=== PATIENT | female | born 1965 | race Caucasian/White ===

== ENCOUNTER → 2019-04-12 | Outpatient (CLI) | payer OTHER | END | disposition home or self-care (01) | LOC: PMG 17:14 | PROVIDERS: ATTEND Registered Nurse | DX: R07.89 Other chest pain (principal); R20.0 Anesthesia of skin | CPT/HCPCS: 36415; 82550; 82607; 84484; 85379 ==

== ENCOUNTER → 2019-04-16 | Outpatient (CLI) | payer OTHER ==
[~2019-04-16] MED LIST: IOHEXOL 350 MG/ML 100 ML VIAL. IV ONE
--- NOTE | 2019-04-16 13:04 | RAD ---
EXAM: CT angiography of the chest with intravenous contrast. HISTORY: Pain. Elevated d-dimer. TECHNIQUE: Computed tomographic images of the chest were obtained following the administration of 75 cc Omnipaque 350 intravenous contrast according to angiography protocol. Multiplanar reformatting was performed and three dimensional maximum intensity projection images were obtained. *One or more of the following individualized dose reduction techniques were utilized for this examination: 1. Automated exposure control. 2. Adjustment of the mA and/or kV according to patient size. 3. Use of iterative reconstruction technique. COMPARISON: None. FINDINGS: There is no evidence of pulmonary embolism. The heart is normal in size. The aorta is normal in caliber. No suspicious lymph node is seen. There is mild eventration of the left hemidiaphragm. There is bilateral posterior dependent and basilar atelectasis. There is a 9 mm nodule with surrounding groundglass within the anterior left upper lobe. There are few peripheral groundglass opacities within the left upper lobe. There is also a 1.6 cm nodular opacity with surrounding groundglass within the lingula abutting the pleural fissure. There is a 3 mm nodule within the lingula. There is a 7 mm pleural-based nodule with surrounding groundglass abutting the pleura of the medial left upper lobe. There is a calcified granuloma within the left lower lobe. There 1.3 cm and 1.4 cm hypodense lesions within the left and posterior right hepatic lobes. The gallbladder and visualized portions of the pancreas are unremarkable. The spleen contains a few granulomas. The adrenal glands and visualized portions of the kidneys are unremarkable. There is no suspicious osseous lesion. There is a mild chronic compression fracture superior endplate Schmorl's node at T11. There are few incidental osseous hemangiomas. IMPRESSION: 1. No evidence of pulmonary emphysema. 2. Left upper lobe and lingular nodules with surrounding groundglass, the largest of which measures 1.6 cm. These may be infectious or inflammatory in etiology, given the presence of additional nonspecific groundglass opacities within the peripheral aspect of the left upper lobe. The possibly of neoplasm is not excluded. Short-term follow-up following treatment of a potential infectious etiology is recommended. If these lesions persist however, short-term follow-up, the largest lesion is within normal limits for assessment with PET/CT. 3. Small hypodense lesions within the liver, possibly representing cysts or hemangiomas. Liver sonography may be useful to confirm benignity. Electronically signed by: Lynn Osborne MD (04/16/2019 1:01 PM) [facility]
== END | disposition home or self-care (01) ==
LOC: CT 12:16
PROVIDERS: ATTEND Registered Nurse
DX: J98.11 Atelectasis (principal); J84.10 Pulmonary fibrosis, unspecified; R91.8 Other nonspecific abnormal finding of lung field; K76.0 Fatty (change of) liver, not elsewhere classified; K76.89 Other specified diseases of liver; M51.44 Schmorl's nodes, thoracic region
CPT/HCPCS: 71275; Q9967

== ENCOUNTER → 2019-04-26 | Outpatient (CLI) | payer OTHER ==
[~2019-04-26] MED LIST changes: +IOHEXOL 300 MG/ML 75 ML VIAL. IV ONE; -IOHEXOL 350 MG/ML 100 ML VIAL. IV ONE
--- NOTE | 2019-04-26 13:07 | RAD ---
EXAM: CT Chest with IV contrast INDICATION: Syncope. TECHNIQUE: Multi-detector row CT images were acquired from the thoracic inlet through the upper abdomen with the use of IV contrast. Sagittal and coronal images were acquired from the transaxial data. All CT scans performed at this facility utilize dose optimization techniques as appropriate to the exam, including the following: Automated exposure control and adjustment of the mA and/or KV according to patient size (this includes techniques or standardized protocols for targeted exams where dose is indication/reason for exam). IV CONTRAST: Administered DLP 249 mGycm COMPARISON: None FINDINGS: CARDIOVASCULAR: Unremarkable. No evidence of aortic aneurysm, dissection or flow limiting stenosis. The pulmonary arteries are not optimally opacified for detailed assessment for pulmonary emboli but no filling defects suspicious for large central pulmonary embolus are evident. MEDIASTINUM & KARLA: Calcified left hilar lymph nodes. No adenopathy or mass. LUNGS: Groundglass opacities are present in the left upper lobe measuring 5 mm (image 29 of 86 on series 4) and 1.2 cm (image 63 on image 4) PLEURAL SPACE: No pleural effusions or pneumothorax. OSSEOUS & SOFT TISSUE: Unremarkable ABDOMEN: There of low-density ovoid lesions in hepatic segments 2 measuring 9 and 6 mm as well as an additional lesion in hepatic segment 7 measuring 1.3 cm are all compatible with hepatic cysts. IMPRESSION: Evidence of previous granulomatous disease with a few scattered groundglass opacities in the left upper lobe that could represent acute pneumonitis. Consider follow-up. No evidence of an acute aortic syndrome or of large, central pulmonary emboli. Electronically signed by: Cody Palumbo MD (04/26/2019 1:03 PM) [facility]
== END | disposition home or self-care (01) ==
LOC: CT 07:43
PROVIDERS: ATTEND Registered Nurse
DX: D71 Functional disorders of polymorphonuclear neutrophils (principal); I89.8 Other specified noninfective disorders of lymphatic vessels and lymph nodes; K76.9 Liver disease, unspecified; R91.8 Other nonspecific abnormal finding of lung field
CPT/HCPCS: 71260; Q9967

== ENCOUNTER → 2019-06-13 | Outpatient (CLI) | payer OTHER ==
--- NOTE | 2019-06-13 11:52 | RAD ---
4 views of the cervical spine 06/13/2019 INDICATION: Numbness and tingling, left arm COMPARISON STUDY: None FINDINGS: No evidence of acute fracture or alignment abnormality is identified. Vertebral body heights are maintained. The lateral axial articulation remains intact. No prevertebral soft tissue edema is identified. Facet joints remain aligned. There is degenerative disc space narrowing at C C5-C6, and C6-C7. A posterior projecting disc osteophyte complexes seen at C5-C6. IMPRESSION: 1. No evidence of acute osseous abnormality 2. Degenerative changes of the cervical spine most prominent at C5-C7 including a posterior projecting disc osteophyte complex at C5-C6 . Given history of possible radicular symptoms, further evaluation with cervical spine MRI may be helpful. Electronically signed by: Jose Carlos Jsoeph MD (06/13/2019 11:49 AM) [id number]
== END | disposition home or self-care (01) ==
LOC: PMG 09:01
PROVIDERS: ATTEND Registered Nurse
DX: M47.812 Spondylosis without myelopathy or radiculopathy, cervical region (principal); M50.322 Other cervical disc degeneration at C5-C6 level; M48.02 Spinal stenosis, cervical region; M25.78 Osteophyte, vertebrae
CPT/HCPCS: 72040

== ENCOUNTER → 2019-10-03 | Outpatient (CLI) | payer OTHER ==
--- NOTE | 2019-10-03 12:15 | RAD ---
DATE: 10/03/2019 7:55 AM EXAM: DIGITAL SCREEN BILAT W/CAD HISTORY: Screening COMPARISON: None. This is a baseline. Bilateral full field craniocaudal and mediolateral oblique images were obtained using digital technique. This study was interpreted with the benefit of Computerized Aided Detection (CAD). FINDINGS: Breast Density: SCATTERED The breast parenchyma shows scattered fibroglandular densities. Breast parenchyma level B Negative right mammogram. Focal asymmetry left breast at the approximate 3:30 o'clock position 6 cm from the nipple needs additional imaging with spot compression views, full-field lateral view and targeted left breast ultrasound. IMPRESSION: Left breast focal asymmetry, findings for which additional imaging is advised. BI-RADS CATEGORY: 0 INCOMPLETE: NEEDS ADDITIONAL IMAGING EVALUATION AND/OR PRIOR MAMMOGRAMS FOR COMPARISON. RECOMMENDED FOLLOW-UP: ADD ADDITIONAL IMAGING The patient will be contacted to return for additional imaging and a supplemental report will follow. PQRS compliance statement: Patient information was entered into a reminder system with a target due date for the next mammogram. Mammography is a sensitive method for finding small breast cancers, but it does not detect them all and is not a substitute for careful clinical examination. A negative mammogram does not negate a clinically suspicious finding and should not result in delay in biopsying a clinically suspicious abnormality. "Our facility is accredited by the [employer] Mammography [employer]."
== END | disposition home or self-care (01) ==
LOC: MAMMO 07:47
PROVIDERS: ATTEND Physician Assistant
DX: Z12.31 Encounter for screening mammogram for malignant neoplasm of breast (principal)
CPT/HCPCS: 77067

== ENCOUNTER → 2020-01-15 | Outpatient (CLI) | payer OTHER ==
--- NOTE | 2020-01-15 18:28 | RAD ---
Examination: BREAST LEFT, DIGITAL DIAGNOSTIC LT History: Reason: ABNORMAL MAMMOGRAM CALLBACK / Spl. Instructions: / History: Comparison/Correlation: 10/03/2019 Findings: Spot compression imaging of the left central breast in the MLO projection, left outer breast, compression, and mediolateral view of the left breast were obtained. Persistence of the asymmetry is present. Scattered fibroglandular densities noted. Limited left breast ultrasound exam at the 3:30 region 6 cm from nipple was performed demonstrating an intramammary lymph node measuring up to 0.6 cm x 0.8 cm x 0.4 cm. This finding corresponds with mammographic finding. Left axilla is unremarkable. Impression: BI-RADS Category 2-benign. Annual screening mammography recommended. Electronically signed by: Lalito Moya MD (01/15/2020 6:25 PM) [id number]
== END ==
LOC: MAMMO 12:49
PROVIDERS: ATTEND Physician Assistant
DX: R92.2 Inconclusive mammogram (principal)
CPT/HCPCS: 76641; 77065